=== PATIENT | female | born 1970 | race Caucasian/White ===

== ENCOUNTER → 2016-07-10 | Outpatient (CLI) | payer BC | END | disposition home or self-care (01) | LOC: RAD.S 12:51 | DX: N63 Unspecified lump in breast (principal); C50.412 Malignant neoplasm of upper-outer quadrant of left female breast; N60.01 Solitary cyst of right breast ==

== ENCOUNTER → 2016-08-21 | Outpatient (CLI) | payer BC | END | disposition home or self-care (01) | LOC: RAD.S 08-20 13:30 | DX: N93.9 Abnormal uterine and vaginal bleeding, unspecified (principal); C80.1 Malignant (primary) neoplasm, unspecified ==

== ENCOUNTER 2016-09-18 13:35 | Emergency (ER) | payer BC ==
--- NOTE | 2016-09-24 15:44 | ER ---
ADMIT: 09/18/2016 RM/LOC: [facility] MR#: [id number] [id number] ELEANOR DEWEY [address] [place] [address] Emergency Room Report SEX: F AGE: 46 : 1970 DATE: 09/18/2016 SUBJECTIVE: The patient is a 46-year-old, from [facility], who just returned from visiting family due to a family , and she presents to us with a sore throat, fever, and chills. Apparently, she says she contacted Dr. Pinedo's office this morning to see if she could be seen because of her symptoms, and she was advised to come to the emergency room and get evaluated because she has been on chemotherapy recently. REVIEW OF SYSTEMS: Otherwise negative. She has had breast cancer for 1 year. She had left mastectomy with tubal ligation. She is on tamoxifen. ALLERGIES: SHE HAS NO ALLERGIES REPORTED. PHYSICAL EXAMINATION: VITAL SIGNS: Blood pressure 100/58, heart rate is 74, respirations 18, temperature 98.7, O2 sats 90%. GENERAL: Mildly anxious. Slightly upset. She does have some mild to moderate pharyngeal erythema without exudates. RESPIRATORY: No distress. ABDOMEN: Nontender. CVS: Regular rate and rhythm. SKIN: Good color and turgor. NEURO: Oriented x4. PSYCH: Mood and affect is depressed. LABORATORY DATA: Her basic labs were as follows; WBCs 5.2, hemoglobin 11.8, hematocrit is 32.8, platelets 148. Her chemistry shows a glucose of 121. Strep screen negative. UA; blood trace, rbc's 15. CLINICAL IMPRESSION: Nasopharyngitis, viral upper respiratory infection in an immunocompromised patient. Dr. Pinedo's office was contacted at 1500 hours. I explained to them and read all the labs. No other followup to do at this point. The patient to keep her appointments with Oncology and return if symptoms worsen. May take Tylenol for her fever if it develops. Handwashing, try to protect herself. Hydrate and rest. ROMMEL Kaplan / Maximiliano Connors MD / modl JOB #: [id number] CC: Maximiliano Connors MD, Attending Physician Caren Schroeder, Family Physician
== END 2016-09-18 15:17 | disposition home or self-care (01) ==
LOC: ER 13:35
DX: J00 Acute nasopharyngitis [common cold] (principal); Z79.899 Other long term (current) drug therapy; C50.912 Malignant neoplasm of unspecified site of left female breast; Z90.12 Acquired absence of left breast and nipple